=== PATIENT | male | born 1965 | race Caucasian/White ===

== ENCOUNTER 2018-11-09 18:35 | Emergency (ER) | payer OTHER ==
[~2018-11-09] VITALS: Ht 172.7 cm; Wt 89.5 kg
[2018-11-09 18:42] VITALS: Ht 172.7 cm; Wt 89.5 kg
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
[2018-11-10 00:56] VITALS: BP 130/76; PULSE 78; RESP 16
== END 2018-11-10 00:57 | disposition home or self-care (01) ==
LOC: E/R 18:35
DX: R09.89 Other specified symptoms and signs involving the circulatory and respiratory systems (principal); R40.2132 Coma scale, eyes open, to sound, at arrival to emergency department; R40.2362 Coma scale, best motor response, obeys commands, at arrival to emergency department; R40.2242 Coma scale, best verbal response, confused conversation, at arrival to emergency department; I10 Essential (primary) hypertension
CPT/HCPCS: 71045; Z7502